=== PATIENT | female | born 1965 | race Caucasian/White ===

== ENCOUNTER 2020-11-13 13:42 | Emergency (ER) | payer BC ==
[2020-11-13] MEDS ORDERED: PROMETHAZINE INJ 25 MG/ML AMP ONE (14:16)
[2020-11-13] MEDS ORDERED: MORPHINE 4 MG/ML SYR ONE (14:17)
[2020-11-13] MEDS ORDERED: NA CHLORIDE 0.9% 500 ML ONE (14:54)
--- NOTE | 2020-11-13 15:13 | RAD REPORT ---
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 Transverse fracture of the medial malleolus is present. Medial malleolus fr acture fragment maintains positioning to the dome of the talus which has been dislocated laterally an d posteriorly. Posterior malleolus fracture is not confirmed though the dome of the talus obscures a small portion. Small plantar and Achilles spurs are present. Soft tissue swelling is present. IMPRESSION: Left ankle bimalleolar fracture dislocation as detailed. Posterior malleolus is not optimally visualized. A small fracture is not excluded.
[2020-11-13] MEDS ORDERED: FENTANYL CITR 100 MCG/2 ML ONE ×2 (15:17→19:17)
--- NOTE | 2020-11-13 16:29 | RAD REPORT ---
EXAM DESCRIPTION: RAD - Ankle Left 3 View - 11/13/2020 3:33 pm CLINICAL HISTORY: post reduction, bile malleolar fracture dislocation COMPARISON: Left ankle same date FINDINGS: Dome of the talus has been reduced to near anatomic alignment and position. There remains approximately 5 mm of lateral displacement. Following reduction, posterior malleolus fracture is no i dentifiable. Fracture fragment is distracted 1.5 mm. IMPRESSION: Dome of the talus has been reduced to near anatomic alignment and positioning. Posterior malleolus fracture is now all visible indicating the patient has a trimalleolar fracture-di slocation history.
--- NOTE | 2020-11-13 16:33 | RAD REPORT ---
EXAM DESCRIPTION: RAD - Tib Fib Left - 11/13/2020 3:33 pm CLINICAL HISTORY: Trimalleolar ankle fracture dislocation, leg pain COMPARISON: None. FINDINGS: Partially imaged fracture at the ankle is separately detailed. Patient has an oblique fracture in the metaphyseal portion of the proximal left fibula. There is no d istraction or angulation component. There is a bone screw present in the proximal tibia from prior pr ocedure, probably ACL repair. No proximal tibia acute finding. IMPRESSION: Nondisplaced, nonangulated fracture of the proximal fibula at the metaphysis. No acute p roximal tibia finding. Ankle fracture is separately detailed.
--- NOTE | 2020-11-13 17:18 | ER ---
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 L ankle ll1 obvious deformity. PMS intact. Coronavirus screen: Client denies travel out of the [place] in the last 14 days. At this time, the client does not indicate any symptoms associated with coronavirus-19. Ebola Screen: Patient denies travel to an Ebola-affected area in the 21 days before illness onset. Initial Sepsis Screen: Does the patient meet any 2 criteria? No. Patient's initial sepsis screen is negative. Does the patient have a suspected source of infection? Yes: Bone or joint infection. Risk Assessment: Do you want to hurt yourself or someone else? Patient reports no desire to harm self or others. Onset of symptoms was November 13, 2020. 13:46 Method Of Arrival: Wheelchair ll1 13:46 Acuity: LISS 2 ll1 13:48 Care prior to arrival: None. Mechanism of Injury: Fall from standing position. Trauma jd3 event details: Injury occurred in the [facility]. 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 - Social history:: Smoking status: Patient denies any tobacco usage or history of. - Immunization history: Last tetanus immunization: unknown. Screenin:24 Abuse screen: Denies threats or abuse. Nutritional screening: No deficits noted. jd3 Tuberculosis screening: No symptoms or risk factors identified. Fall Risk Fall in past 12 months (25 points). Gait- Impaired (20 pts.). Total [place] Fall Scale indicates High Risk Score (45 or more points). Fall prevention measures have been instituted. Side Rails Up X 2 Placed Close to Nursing Station Frequent Obs/Assessments Occuring Family Present and informed to notify staff if the need to leave the bedside. Primary Survey: 13:48 NO uncontrolled hemorrhage observed. A: The patient is alert. Airway: patent, No jd3 supplemental oxygen in use on arrival. Oral cavity: clear, Trachea midline. Breathing/Chest: Respiratory pattern: regular, Respiratory effort: spontaneous, unlabored, Chest inspection: symmetrical rise and fall of the chest. Circulation: Pulses: palpable right dorsalis pedis artery and left dorsalis pedis artery. Skin color: pink, Skin temperature: warm. Disability Alert. Exposure/Environment: All clothing and personal items were removed. Forensic evidence collection is not deemed to be indicated at this time. Items placed in patient belonging bag. There is no evidence of uncontrolled external bleeding. Obvious injury(ies) are noted at this time: deformity noted to the left ankle A warming method has been applied: A warm blanket has been provided to the patient. 14:45 Reassessment Airway Airway Patent Oxygen No O2 Oral cavity Clear Trachea Midline jd3 Breathing/Chest Respiratory pattern Regular Respiratory effort Spontaneous Unlabored Chest inspection Symmetrical Circulation Pulses Palpable Color Cecilia Temperature Warm Disability Alert. Secondary Survey: 13:48 HEENT: No deficits noted. Gastrointestinal: No deficits noted. : No signs and/or jd3 symptoms were reported regarding the genitourinary system. Musculoskeletal: Circulation, motion, and sensation intact. Range of motion: limited in left ankle Bony deformity noted of left ankle Swelling present in left ankle. Assessment: 13:48 General: Appears uncomfortable, Behavior is calm, cooperative, appropriate for age. jd3 Pain: Complains of pain in left ankle Quality of pain is described as sharp, tender. Neuro: Level of Consciousness is awake, alert, obeys commands, Oriented to person, place, time, situation. Cardiovascular: Capillary refill < 3 seconds Patient's skin is warm and dry. Respiratory: Airway is patent Respiratory effort is even, unlabored, Respiratory pattern is regular, symmetrical, Denies cough, shortness of breath. GI: No signs and/or symptoms were reported involving the gastrointestinal system. : No signs and/or symptoms were reported regarding the genitourinary system. EENT: No signs and/or symptoms were reported regarding the EENT system. Derm: Skin is intact, Skin is dry, Skin is normal, Skin temperature is warm. Musculoskeletal: Circulation, motion, and sensation intact. Range of motion: limited in left ankle Bony deformity noted of left ankle Swelling present in left ankle. 14:53 Reassessment: Patient and/or family updated on plan of care and expected duration. Pain jd3 level reassessed. Patient is alert, oriented x 3, equal unlabored respirations, skin warm/dry/pink. conscious sedation started. 15:18 Reassessment: Patient and/or family updated on plan of care and expected duration. Pain jd3 level reassessed. Patient is alert, oriented x 3, equal unlabored respirations, skin warm/dry/pink. pt fully awake and post procedure X-rays being taken. Patient states feeling better. 16:17 Reassessment: Patient and/or family updated on plan of care and expected duration. Pain jd3 level reassessed. Patient is alert, oriented x 3, equal unlabored respirations, skin warm/dry/pink. awaiting post X-ray results Patient states feeling better. 17:15 Reassessment: Patient appears in no apparent distress at this time. Patient and/or jd3 family updated on plan of care and expected duration. Pain level reassessed. Patient is alert, oriented x 3, equal unlabored respirations, skin warm/dry/pink. 17:15 Reassessment: Patient appears in no apparent distress at this time. Patient and/or jd3 family updated on plan of care and expected duration. Pain level reassessed. Patient is alert, oriented x 3, equal unlabored respirations, skin warm/dry/pink. reported understanding of discharge instructions, assisted pt to car with family via wheelchair. Vital Signs: 13:47 Weight 124.74 kg; Height 5 ft. 7 in. (170.18 cm); ll1 13:47 BP 161 / 94; Pulse 94; Resp 18; Temp 98.1; Pulse Ox 96% on R/A; dh4 15:18 BP 132 / 55; Pulse 87; Resp 17 S; Pulse Ox 100% on 2 lpm NC; jd3 16:18 BP 137 / 79; Pulse 78; Resp 17 S; Pulse Ox 100% on R/A; jd3 18:03 BP 137 / 73; Pulse 87; Resp 17 S; Pulse Ox 100% on R/A; jd3 13:47 Body Mass Index 43.07 (124.74 kg, 170.18 cm) ll1 [place] Coma Score: 13:48 Eye Response: spontaneous(4). Verbal Response: oriented(5). Motor Response: obeys jd3 commands(6). Total: 15. 16:18 Eye Response: spontaneous(4). Verbal Response: oriented(5). Motor Response: obeys jd3 commands(6). Total: 15. Trauma Score (Adult): 13:48 Eye Response: spontaneous(1); Verbal Response: oriented(1); Motor Response: obeys jd3 commands(2); Systolic BP: > 89 mm Hg(4); Respiratory Rate: 10 to 29 per min(4); [place] Score: 15; Trauma Score: 12 16:18 Eye Response: spontaneous(1); Verbal Response: oriented(1); Motor Response: obeys jd3 commands(2); Systolic BP: > 89 mm Hg(4); Respiratory Rate: 10 to 29 per min(4); [place] Score: 15; Trauma Score: 12 ED Course: 13:44 Patient arrived in ED. ds1 13:47 Triage completed. ll1 13:48 Ambrocio Forrester PA is PHCP. [facility] 13:48 Patrick Alfredo MD is Attending Physician. jmm 13:48 Arm band placed on Patient placed in an exam room, on a stretcher. ll1 13:48 Patient maintains SpO2 saturation greater than 95% on room air. Thermoregulation: warm jd3 blanket given to patient. 13:49 Jhonathan Lema RN is Primary Nurse. jd3 14:06 Inserted saline lock: 22 gauge in right hand, using aseptic technique. jd3 14:46 Ankle Left 3 View XRAY In Process Unspecified. EDMS 14:53 Assist provider with fracture care of left ankle Fracture is closed. Obvious deformity jd3 is noted. Circulation, motor and sensation is intact. Set up for procedure. Performed by Ambrocio SWAIN Reduced with physical manipulation. Immobilized with OCL splint, Post immobilization, circulation, motor and sensation remain intact. Patient tolerated well. 15:10 Orthoglass splint: Posterior short lleg splint applied on left leg. Orthoglass splint: dh4 stirrup splint applied on left leg. 15:25 Patient has correct armband on for positive identification. Bed in low position. Call jd3 light in reach. Side rails up X2. Adult w/ patient. 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 Pulse ox on. NIBP on. 15:33 Ankle Left 3 View XRAY In Process Unspecified. EDMS 15:33 Tib Fib Left XRAY In Process Unspecified. EDMS 18:02 IV discontinued, intact, bleeding controlled, No redness/swelling at site. Pressure jd3 dressing applied. 18:54 Primary Nurse role handed off by Jhonathan Lema RN sv Administered Medications: 13:49 CANCELLED (lower dose used): Promethazine 25 mg IVP once jmm 14:05 Drug: Promethazine 12.5 mg Route: IVP; Site: right hand; jd3 15:05 Follow up: Response: No adverse reaction jd3 14:06 Drug: morphine 4 mg Route: IVP; Site: right hand; jd3 15:06 Follow up: Response: No adverse reaction; RASS: Alert and Calm (0) jd3 14:52 Drug: NS 0.9% 500 ml Route: IV; Rate: calculated rate; Site: right hand; jd3 15:50 Follow up: Response: No adverse reaction; IV Status: Completed infusion jd3 14:53 Drug: Propofol 100 mg Route: IVP; Site: right hand; jd3 15:53 Follow up: Response: No adverse reaction jd3 14:59 Drug: fentaNYL (PF) 25 mcg Route: IVP; Site: right hand; jd3 15:59 Follow up: Response: No adverse reaction; RASS: Alert and Calm (0) jd3 15:00 Drug: Propofol 60 mg Route: IVP; Site: right hand; jd3 16:00 Follow up: Response: No adverse reaction jd3 19:05 Drug: fentaNYL (PF) 50 mcg {Note: rass1.} Route: IM; Site: left deltoid; sv 19:20 Follow up: Response: No adverse reaction; RASS: Alert and Calm (0) jd3 Intake: 18:00 PO: 150ml (Water); Total: 150ml. jd3 Output: 18:00 Urine: 200ml (Voided); Total: 200ml. jd3 Outcome: 17:17 Discharge ordered by MD. remedios 18:02 Discharged to home via wheelchair, with family. jd3 18:02 Condition: stable 18:02 Discharge instructions given to patient, family, Instructed on discharge instructions, follow up and referral plans. medication usage, Demonstrated understanding of instructions, follow-up care, medications, Prescriptions given X 2. 18:08 waiting on x-ray resultsPatient's length of stay extended due to jd3 18:08 Patient left the ED. jd3 19:05 Patient left the ED. Signatures: Dispatcher [employer] Marley Toussaint RN Ambrocio Prince PA PA jmm Sanford, Demi ds1 Jhonathan Lema RN RN jd3 Huhn, Donald dh4 Marlene Mccartney RN RN ll1 Corrections: (The following items were deleted from the chart) 18:02 15:00 Assist provider with fracture care of left ankle Fracture is closed. Obvious jd3 deformity is noted. Circulation, motor and sensation is intact. Set up for procedure. Performed by Ambrocio SWAIN Reduced with physical manipulation. Immobilized with OCL splint, Post immobilization, circulation, motor and sensation remain intact. Patient tolerated well. jd3 19:33 15:23 Response: No adverse reaction jd3 jd3
--- NOTE | 2020-11-13 17:18 | EDPHYS ---
Physician Documentation [facility] Name: Sandee Lockett Age: 55 yrs Sex: Female : 1965 Arrival Date: 11/13/2020 Time: 13:44 Bed External Waiting Private MD: ED Physician Patrick Alfredo HPI: 11/13 13:48 This 55 yrs old Female presents to ER via Wheelchair with complaints of Fall jmm Injury. 13:48 Details of fall: The patient fell from an upright position. Onset: The symptoms/episode jmm began/occurred acutely, just prior to arrival. Associated injuries: The patient sustained ankle. The patient has not experienced similar symptoms in the past. This is a 55 year old female with a history of asthma that presents to the ED with complaints of left ankle pain. patient states she slipped while mowing her lawn. Denies other known injury. . 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 - Social history:: Smoking status: Patient denies any tobacco usage or history of. - Immunization history: Last tetanus immunization: unknown. ROS: 13:48 Constitutional: Negative for fever, chills, and weight loss, Cardiovascular: Negative jmm for chest pain, palpitations, and edema, Respiratory: Negative for shortness of breath, cough, wheezing, and pleuritic chest pain. 13:48 MS/extremity: Positive for injury or acute deformity. 13:48 All other systems are negative. Exam: 13:48 Constitutional: This is a well developed, well nourished patient who is awake, alert, jmm and in no acute distress. Head/Face: atraumatic. Eyes: EOMI, no conjunctival erythema appreciated ENT: Moist Mucus Membranes Neck: Trachea midline, Supple Chest/axilla: Normal chest wall appearance and motion. Cardiovascular: Regular rate and rhythm. No edema appreciated Respiratory: Normal respirations, no respiratory distress appreciated Abdomen/GI: Non distended, soft Back: Normal ROM Skin: General appearance color normal 13:48 Musculoskeletal/extremity: deformity noted to the left ankle, full dorsals pulse, compartments are soft, NVI. 13:48 Skin: Appearance: Color: normal in color. 13:48 Neuro: Orientation: is normal, Mentation: is normal, Memory: is normal. 13:48 Psych: Behavior/mood is pleasant, cooperative. Vital Signs: 13:47 Weight 124.74 kg; Height 5 ft. 7 in. (170.18 cm); ll1 13:47 BP 161 / 94; Pulse 94; Resp 18; Temp 98.1; Pulse Ox 96% on R/A; dh4 15:18 BP 132 / 55; Pulse 87; Resp 17 S; Pulse Ox 100% on 2 lpm NC; jd3 16:18 BP 137 / 79; Pulse 78; Resp 17 S; Pulse Ox 100% on R/A; jd3 18:03 BP 137 / 73; Pulse 87; Resp 17 S; Pulse Ox 100% on R/A; jd3 13:47 Body Mass Index 43.07 (124.74 kg, 170.18 cm) ll1 [place] Coma Score: 13:48 Eye Response: spontaneous(4). Verbal Response: oriented(5). Motor Response: obeys jd3 commands(6). Total: 15. 16:18 Eye Response: spontaneous(4). Verbal Response: oriented(5). Motor Response: obeys jd3 commands(6). Total: 15. Trauma Score (Adult): 13:48 Eye Response: spontaneous(1); Verbal Response: oriented(1); Motor Response: obeys jd3 commands(2); Systolic BP: > 89 mm Hg(4); Respiratory Rate: 10 to 29 per min(4); [place] Score: 15; Trauma Score: 12 16:18 Eye Response: spontaneous(1); Verbal Response: oriented(1); Motor Response: obeys jd3 commands(2); Systolic BP: > 89 mm Hg(4); Respiratory Rate: 10 to 29 per min(4); [place] Score: 15; Trauma Score: 12 Procedures: 17:13 Reduction: of the left ankle, using manipulation, Immobilized with posterior/stirrup. remedios Patient tolerated well. Post reduction film - reveals improved alignment. MDM: 14:03 Patient medically screened. [facility] 17:13 Data reviewed: vital signs, nurses notes. Counseling: I had a detailed discussion with [facility] the patient and/or guardian regarding: the historical points, exam findings, and any diagnostic results supporting the discharge/admit diagnosis, radiology results, the need for outpatient follow up, to return to the emergency department if symptoms worsen or persist or if there are any questions or concerns that arise at home. ED course: Pain decreased in the ED. Improved alignment. NVI. Advised not to bear weight until seen by orthopedics. Patient is otherwise given compartments syndrome return precautions. . 11/13 13:51 Order name: Ankle Left 3 View XRAY; Complete Time: 15:17 [facility] 11/13 15:06 Order name: Ankle Left 3 View XRAY; Complete Time: 16:30 [facility] 11/13 15:06 Order name: Tib Fib Left XRAY; Complete Time: 16:50 [facility] 11/13 13:48 Order name: Saline Lock; Complete Time: 14:06 [facility] 11/13 14:14 Order name: Splint - Ankle: Orthoglass: Stirrup; Complete Time: 15:14 [facility] Administered Medications: 13:49 CANCELLED (lower dose used): Promethazine 25 mg IVP once [facility] 14:05 Drug: Promethazine 12.5 mg Route: IVP; Site: right hand; jd3 15:05 Follow up: Response: No adverse reaction jd3 14:06 Drug: morphine 4 mg Route: IVP; Site: right hand; jd3 15:06 Follow up: Response: No adverse reaction; RASS: Alert and Calm (0) jd3 14:52 Drug: NS 0.9% 500 ml Route: IV; Rate: calculated rate; Site: right hand; jd3 15:50 Follow up: Response: No adverse reaction; IV Status: Completed infusion jd3 14:53 Drug: Propofol 100 mg Route: IVP; Site: right hand; jd3 15:53 Follow up: Response: No adverse reaction jd3 14:59 Drug: fentaNYL (PF) 25 mcg Route: IVP; Site: right hand; jd3 15:59 Follow up: Response: No adverse reaction; RASS: Alert and Calm (0) jd3 15:00 Drug: Propofol 60 mg Route: IVP; Site: right hand; jd3 16:00 Follow up: Response: No adverse reaction jd3 19:05 Drug: fentaNYL (PF) 50 mcg {Note: rass1.} Route: IM; Site: left deltoid; sv 19:20 Follow up: Response: No adverse reaction; RASS: Alert and Calm (0) [facility] Disposition: 18:14 Co-signature as Attending Physician, Patrick Alfredo MD. rn Disposition: 11/13/20 17:17 Discharged to Home. Impression: Left Nondisplaced Proximal Fibular Fracture, Left Displaced Distal Tibia Fracture, Left Displaced Distal Fibular Fracture. - Condition is Stable. - Discharge Instructions: Ankle Fracture, Closed Reduction for Ankle Fracture or Dislocation, Closed Reduction for Ankle Fracture or Dislocation, Care After, Complex Ankle Fracture. - Prescriptions for Tylenol- Codeine #3 300-30 mg Oral Tablet - take 1 tablet by ORAL route every 4-6 hours As needed; 20 tablet. promethazine 25 mg Oral Tablet - take 1 tablet by ORAL route every 6 hours As needed; 20 tablet. - Medication Reconciliation Form, Thank You Letter, Antibiotic Education, Prescription Opioid Use form. - Follow up: Private Physician; When: 2 - 3 days; Reason: Recheck today's complaints, Continuance of care, Re-evaluation by your physician. Signatures: Dispatcher [employer] Marley Ansari RN RN sv Mickail, Joel, PA PA [facility] Patrick Alfredo MD MD rn Davies, Jonathon, RN RN jd3 Lewis, Lynsay, RN RN ll1 Corrections: (The following items were deleted from the chart) 13:49 13:48 Promethazine 25 mg IVP once ordered. [facility] 15:31 15:13 Forearm Left+[email or web address].BRZ ordered. [facility] 18:08 17:17 11/13/2020 17:17 Discharged to Home. Impression: Left Nondisplaced Proximal jd3 Fibular Fracture; Left Displaced Distal Tibia Fracture; Left Displaced Distal Fibular Fracture. Condition is Stable. Forms are Medication Reconciliation Form, Thank You Letter, Antibiotic Education, Prescription Opioid Use. Follow up: Private Physician; When: 2 - 3 days; Reason: Recheck today's complaints, Continuance of care, Re-evaluation by your physician. [facility] 19:05 18:08 11/13/2020 17:17 Discharged to Home. Impression: Left Nondisplaced Proximal sv Fibular Fracture; Left Displaced Distal Tibia Fracture; Left Displaced Distal Fibular Fracture. Condition is Stable. Discharge Instructions: Ankle Fracture, Closed Reduction for Ankle Fracture or Dislocation, Closed Reduction for Ankle Fracture or Dislocation, Care After, Complex Ankle Fracture. Prescriptions for Tylenol-Codeine #3 300-30 mg Oral Tablet - take 1 tablet by ORAL route every 4-6 hours As needed; 20 tablet, promethazine 25 mg Oral Tablet - take 1 tablet by ORAL route every 6 hours As needed; 20 tablet. and Forms are Medication Reconciliation Form, Thank You Letter, Antibiotic Education, Prescription Opioid Use. Follow up: Private Physician; When: 2 - 3 days; Reason: Recheck today's complaints, Continuance of care, Re-evaluation by your physician. jd3
[2020-11-13] MEDS ORDERED: propofoL 200 MG/20 ML VIAL IV ONE (17:33)
[2020-11-13 18:19] VITALS: TEMP 98.1
[2020-11-13 18:21] VITALS: O2SAT 100
[2020-11-13 18:32] VITALS: BP 137/73
== END 2020-11-13 19:05 | disposition home or self-care (01) ==
LOC: ER 13:42
PROC: 0QSHXZZ Reposition Left Tibia, External Approach (ICD-10-PCS; principal; 2020-11-13)
PROC: 0QSKXZZ Reposition Left Fibula, External Approach (ICD-10-PCS; 2020-11-13)
DX: S82.402A Unspecified fracture of shaft of left fibula, initial encounter for closed fracture (principal); S82.302A Unspecified fracture of lower end of left tibia, initial encounter for closed fracture; S82.832A Other fracture of upper and lower end of left fibula, initial encounter for closed fracture; W01.0XXA Fall on same level from slipping, tripping and stumbling without subsequent striking against object, initial encounter; Y93.89 Activity, other specified; Z88.0 Allergy status to penicillin; Z88.3 Allergy status to other anti-infective agents; Z88.6 Allergy status to analgesic agent
CPT/HCPCS: 96361; 73590; 73610 ×2; 96375; 96372; 96374; 99285; 27825; 27788; J2704; J2550; J3010 ×2; J7040; G0390